=== PATIENT | female | born 1955 | race Caucasian/White ===

== ENCOUNTER → 2017-05-06 | Outpatient (CLI) | payer OTHER ==
[2014-07-16 11:00] VITALS: BP 129/63
[~2017-05-06] MED LIST: ASPI-252 PO; ATOR10TA PO; CIPR500T PO; LEVO100T5 PO; LOSA1TAB19 PO; Metoprolol Tartrate PO; Oxycodone Hcl/Acetaminophen PO; WARF-78 PO
--- NOTE | 2017-05-06 14:20 | KCIC ---
INDICATION: Chronic low back pain and right radiculopathy. Hurts to sit and hurts to stand. Hurts to lie down. TECHNIQUE: Sagittal T1, sagittal T2, sagittal STIR, axial T1, and axial T2 sequences are provided. Radiographs from April 11, 2017 are available for comparison. FINDINGS: There is 4 mm of anterolisthesis at L4-L5. There is anterolisthesis at L5-S1 measuring 6 mm. There is otherwise no malalignment. There is no worrisome marrow lesion. There is diffuse disc desiccation. There is narrowing of disc height at L1-L2, mild. The conus medullaris is normal in signal intensity and in position. Subcutaneous edema is noted. The numbering system assumes 5 lumbar type vertebral bodies. Findings by individual level are as follows: L1-L2: Disc bulge and endplate spurring are noted along with mild facet hypertrophy. There is mild to moderate left and mild right foraminal narrowing. Midline AP diameter of the thecal sac is still 14 mm. L2-L3: There is a mild disc bulge with [id number] facet and ligamentum flavum hypertrophy. Midline AP diameter of the thecal sac is still 13 mm. There is mild foraminal narrowing. L3-L4: Minimal disc bulge and mild to moderate facet and ligamentum flavum hypertrophy are noted without canal stenosis. Midline AP diameter of the thecal sac is 14 mm. Foraminal narrowing is mild to moderate on the left and mild on the right. L4-L5: There is a disc bulge in addition to the anterolisthesis. There is marked facet hypertrophy and there is mild ligamentum flavum hypertrophy. Midline AP diameter of the thecal sac is narrowed to 10 mm. There is mild lateral recess narrowing bilaterally. Foraminal narrowing appears mild to moderate. L5-S1: There is facet hypertrophy. There is unroofing of the disc. There is [id number] bilateral foraminal narrowing. IMPRESSION: Degenerative changes in the lumbar spine are greatest at L4-L5. Electronically signed by: Calin Monzon MD (05/06/2017 2:17 PM) [facility]
== END | disposition home or self-care (01) ==
LOC: KCIC MRI 12:46
PROVIDERS: ATTEND Physician Assistant Medical
DX: M54.16 Radiculopathy, lumbar region (principal); M47.896 Other spondylosis, lumbar region
CPT/HCPCS: 72148

== ENCOUNTER → 2017-06-03 | Outpatient (CLI) | payer OTHER | END | disposition home or self-care (01) | LOC: KCIC 15:59 | DX: M43.16 Spondylolisthesis, lumbar region (principal); M51.37 Other intervertebral disc degeneration, lumbosacral region | CPT/HCPCS: 72110 ==

== ENCOUNTER 2018-10-30 06:49 | Outpatient (CLI) | payer OTHER ==
[~2018-10-30] VITALS: Ht 162.6 cm; Wt 131.5 kg
[2018-10-30] VITALS (15 sets, daily range): BP systolic 86–151; BP diastolic 42–83
[2018-10-30] MEDS ORDERED: CELE200C PO (07:23)
[2018-10-30] MEDS ORDERED: WARF1TAB69 PO (07:23)
[2018-10-30] MEDS ORDERED: DRON400T PO (07:23)
[2018-10-30] MEDS ORDERED: CYCL10TA2 PO (07:23)
[2018-10-30] MEDS ORDERED: OXYB5TAB7 PO (07:23)
[2018-10-30] MEDS ORDERED: LIDOCAINE 1% PF 2 ML VIAL. ONE ×2 (07:53→10:54)
[2018-10-30] MEDS ORDERED: IODIXANOL 320 MG/ML 100 ML VIAL. ONE ×2 (07:53→10:42)
[2018-10-30] MEDS ORDERED: fentaNYL PF VIAL 100 MCG/2 ML VIAL ONE ×3 (07:55→11:13)
[2018-10-30 07:56] LABS: HEMATOCRIT 35.3 % (36.0-47.0); HEMOGLOBIN 11.5 g/dL (12.0-15.5); RED BLOOD COUNT 4.47 x10^6/uL (3.50-5.40); RED CELL DISTRIBUTION WIDTH 16.3 % (11.5-14.5); WHITE BLOOD COUNT 8.1 x10^3/uL (4.0-11.0)
[2018-10-30] MEDS ORDERED: NITROGLYCERIN 200 MCG/2 ML SYRINGE FOR CATH/VASC LAB. ONE (07:56)
[2018-10-30] MEDS ORDERED: HEPARIN for IV BOLUS 10,000 UNIT/10 ML VIAL. ONE (07:56)
[2018-10-30] MEDS ORDERED: VERAPAMIL 5 MG/2 ML VIAL. ONE (07:56)
[2018-10-30] MEDS ORDERED: MIDAZOLAM HCL/PF 2 MG/2 ML VIAL. ONE ×3 (07:56→11:13)
[2018-10-30 08:02] LABS: PROTHROMBIN TIME PATIENT 26.5 SEC (11.7-14.0)
[2018-10-30 08:14] LABS: CALCIUM 9.2 mg/dL (8.5-10.1); CREATININE 0.9 mg/dL (0.6-1.0); GFR 63.4; POTASSIUM 3.7 mmol/L (3.5-5.1)
[2018-10-30] MEDS ORDERED: fentaNYL PF VIAL 100 MCG/2 ML VIAL IV ONE (08:15)
[2018-10-30] MEDS ORDERED: HEPARIN for IV BOLUS 10,000 UNIT/10 ML VIAL. IART ONE (08:15)
[2018-10-30] MEDS ORDERED: VERAPAMIL 5 MG/2 ML VIAL. IART ONE (08:15)
[2018-10-30] MEDS ORDERED: IODIXANOL 320 MG/ML 100 ML VIAL. IART ONE (08:15)
[2018-10-30] MEDS ORDERED: NITROGLYCERIN 200 MCG/2 ML SYRINGE FOR CATH/VASC LAB. IART ONE (08:15)
[2018-10-30] MEDS ORDERED: LIDOCAINE 1% PF 2 ML VIAL. INJ ONE (08:15)
[2018-10-30] MEDS ORDERED: MIDAZOLAM HCL/PF 2 MG/2 ML VIAL. IV ONE (08:15)
[2018-10-30] MEDS ORDERED: diphenhydrAMINE 50 MG/ML VIAL ONE (11:02)
[2018-10-30] MEDS ORDERED: diphenhydrAMINE 50 MG/ML VIAL IVP ONE (11:15)
--- NOTE | 2018-10-30 11:43 | CARD ---
MR#: [id number] Date of Study: 10/30/2018 Ordering Physician: SCOTTIE BRIGHT, Referring Physician: Padmini BRUNSON: JERRY JARQUIN RTR APPROVED REPORT Technologist: JERRY JARQUIN RTR Nurse: Ankita Farley RN Procedure(s) performed: Left heart catheterization, selective coronary angiography via right transrad ial approach Moderate sedation:24 mins Fluoro time: 4.4 mins Dose: 43.9 GYCM2 Contrast: 71 ml INDICATION The indication(s) include : Chest pain and positive stress test. [facility] Clinical Frailty Scale [facility] Clinical Frailty Scale: Well Heart Failure Heart Failure: No PROCEDURE NARRATIVE After explaining the risks, benefits and alternative options, informed consent was obtained from gildardo ent. Patient was brought to the cardiac [employer]igator and right wrist was prepped and draped in the usual fashion after confirming a positive modified Xiang's test. Arterial access was obtained in the [facility] t radial artery and a 6 German sheath was inserted. 5 German Justin catheter was used to perform josh ective angiography of the left and right coronary arteries. Left ventriculography was not performed s axel patient has mechanical aortic valve. Patient tolerated the procedure well. Hemostasis was achie katharine using TR band. There were no immediate complications. The following findings were noted. FINDINGS Coronary angiography: a. The left main coronary artery arose from the left sinus of Valsalva, gave rise to the left anteri or descending and left circumflex arteries and did not show any significant stenosis. b. The left anterior descending artery did not show any significant stenosis. c. The left circumflex artery did not show any significant stenosis. d. The right coronary artery was a large and dominant vessel arising from the right sinus of Valsalv a that did not show any significant stenosis. Conclusion No significant coronary artery disease Signed by : Scottie Bright, Electronically Approved : 10/30/2018 11:43:17
[2018-10-30] MEDS ORDERED: IV 1/2 NORMAL SALINE 1,000 ML IV SCH (11:44)
--- NOTE | 2018-10-30 11:44 | PDOC ---
MODERATE SEDATION ASSESSMENT RISKS/ALTERNATIVES Risks/Alternatives Risks and alternatives of this type of sedation and procedure discussed with: RISK/ALTERNATIVES: Patient H & P ON CHART H & P H & P on chart and reviewed for co-morbid conditions and appropriate labs. H&P ON CHART: Yes STATUS PREG STATUS ASSESSED: N/A MEDS/ALLERGIES REVIEWED Meds/Allergies Reviewed Medications and Allergies including time and route of recently administered narcotics and sedatives. MEDS/ALLERGIES REVIEWED: Yes ASA RATING ASA RATING: II AIRWAY ASSESSMENT Airway Assessment Airway patency, oral function limitations, presence of caps, crowns, dentures, partials, and ability to extend neck assessed. AIRWAY ASSESSMENT: Yes MALLAMPATI SCORE MALLAMPATI SCORE: II PRE-SEDATION ASSESSMENT PRE-SEDATION ASSESSMENT: Yes SCOTTIE BRIGHT MD Oct 30, 2018 11:44
[2018-10-30] MEDS ORDERED: NITROGLYCERIN SUBLINGUAL 0.4 MG BOTTLE OF 25. SL PRN (11:45)
--- NOTE | 2018-10-30 16:34 | NUR ---
Discharge Note: NIEVES HERZOG Discharge instructions and discharge home medications reviewed with Patient and a copy given. All questions have been answered and understanding verbalized. The following instructions and handouts were given: transradial angiography and post moderate sedation care. Discontinued lines and drains: Lt hand s/l removed with tip intact. Patient discharged to home with via private car at this time.
== END 2018-10-30 16:36 | disposition home or self-care (01) ==
LOC: CCL 06:49
PROVIDERS: ATTEND Internal Medicine Cardiovascular Disease
DX: R94.39 Abnormal result of other cardiovascular function study (principal); R07.9 Chest pain, unspecified; I10 Essential (primary) hypertension; I48.91 Unspecified atrial fibrillation; E03.9 Hypothyroidism, unspecified; F41.9 Anxiety disorder, unspecified; K21.9 Gastro-esophageal reflux disease without esophagitis; E66.9 Obesity, unspecified; E78.00 Pure hypercholesterolemia, unspecified; M19.90 Unspecified osteoarthritis, unspecified site; F17.210 Nicotine dependence, cigarettes, uncomplicated; Z90.710 Acquired absence of both cervix and uterus; Z98.890 Other specified postprocedural states
CPT/HCPCS: 36415; 80048; 85027; 85610; 85730; 93454; 99152; 99153; C1769; C1892; J1200; J1644; J2250; J3010; J3490; Q9967